=== PATIENT | female | born 1985 | race Caucasian/White ===

== ENCOUNTER 2022-01-25 06:01 | Inpatient (IN) ==
[2022-01-25] MEDS ORDERED: Naloxone 0.4 MG/ML INJ IVP PRN (06:15)
[2022-01-25] MEDS ORDERED: Metoclopramide 10 MG/2 ML VIAL IVP PRN (06:15)
[2022-01-25] MEDS ORDERED: Famotidine 20 MG/2 ML VIAL IVP PRN (06:15)
[2022-01-25] MEDS ORDERED: *HR* Nalbuphine 10 MG/ML AMPUL IV PRN (06:15)
[2022-01-25] MEDS ORDERED: miSOPROStoL 25 MCG TABLET PO PRN (06:15)
[2022-01-25] MEDS ORDERED: EPHEDrine 50 MG/ML VIAL IVP PRN (06:43)
[2022-01-25 06:54] LABS: Basophils % 0.2 %; Eosinophils # 0.1 K/mcL (0.0-0.6); Eosinophils % 1.4 %; Hematocrit 39.7 % (35.3-44.9); Hemoglobin 13.2 g/dL (11.5-15.4); Immature Granulocytes % 0.4 % (0-4); Lymphocytes # 2.6 K/mcL (0.6-4.6); Lymphocytes % 28.6 %; Mean Corpuscular HGB Conc 33.2 g/dL (31.6-35.5); Mean Corpuscular Hemoglobin 31.7 pg (28.0-33.3); Mean Corpuscular Volume 95.2 fL (83.0-100.0); Mean Platelet Volume 11.4 fL (9.4-12.4); Monocytes # 0.9 K/mcL (0.0-1.3); Monocytes % 9.9 %; Neutrophils # 5.5 K/mcL (1.6-8.9); Platelet Count 162 K/mcL (140-400); Red Blood Count 4.17 M/mcL (3.82-4.97); Red Cell Distribution Width 12.1 % (11.5-14.5); Segmented Neutrophils % 59.5 %; White Blood Count 9.2 K/mcL (4.3-11.1)
[2022-01-25 08:28] LABS: Amphetamine Screen,Urine Negative ng/mL (Cutoff=1000); Barbiturate Screen,Urine Negative ng/mL (Cutoff=200); Benzodiazepines Screen,Urine Negative ng/mL (Cutoff=200); Cannabinoid Screen,Urine Positive ng/mL (Cutoff = 50); Cocaine Screen,Urine Negative ng/mL (Cutoff= 300); Opiate Screen,Urine Negative ng/mL (Cutoff=300); Phencyclidine Screen,Urine Negative ng/mL (Cutoff=25)
[2022-01-25] MEDS ORDERED: EPHEDrine sulfate 50 MG/10 ML VIAL IVP PRN (12:30)
[2022-01-25] MEDS: Ringers Solution, Lactated 1,000 ML IVC SCH ×2 (13:10→14:18)
[2022-01-25] MEDS: Epidural Premix (fent/bupiv) 110 ML EP SCH ×2 (14:35→21:37)
[2022-01-25] MEDS ORDERED: Ondansetron 4 MG/2 ML VIAL ONE (14:38)
[2022-01-25] MEDS: Ondansetron 4 MG/2 ML VIAL IVP PRN ×2 (14:44→23:23)
[2022-01-25] MEDS ORDERED: Oxytocin 30 UNIT/503 ML BAG IVC SCH (15:45)
[2022-01-26 06:22] VITALS: O2SAT 99
[2022-01-26] MEDS ORDERED: Oxytocin 30 UNIT/503 ML BAG IVC SCH (07:06)
[2022-01-26] MEDS ORDERED: Lanolin 7 G OINT...G. TP PRN (07:06)
[2022-01-26] MEDS ORDERED: Benzocaine/Menthol 56 GM AEROSOL SPRAY TP PRN (07:06)
[2022-01-26] MEDS ORDERED: Rho Immune Globulin 1,500 UNIT SYRINGE IM PRN (07:06)
[2022-01-26] MEDS ORDERED: Ondansetron ODT 4 MG TAB.RAPDIS SL PRN (07:06)
[2022-01-26] MEDS ORDERED: Measles/Mumps/Rubella Vacc 0.5 ML VIAL SQ PRN (07:06)
[2022-01-26] MEDS ORDERED: Benzocaine/Menthol 56 GM AEROSOL SPRAY TP ONE (07:16)
[2022-01-26] MEDS: Ibuprofen 600 MG TABLET PO SCH ×3 (07:41→21:01)
[2022-01-26] MEDS: Prenatal Vit/FA 1 EACH TABLET PO SCH (08:03)
[2022-01-26] MEDS: Acetaminophen 325 MG TABLET PO SCH ×3 (15:43→21:01)
[2022-01-27] MEDS: Acetaminophen 325 MG TABLET PO SCH ×2 (03:49→10:56)
[2022-01-27] MEDS: Ibuprofen 600 MG TABLET PO SCH ×2 (03:49→10:57)
[2022-01-27 05:27] LABS: Basophils % 0.2 %; Eosinophils # 0.2 K/mcL (0.0-0.6); Eosinophils % 0.9 %; Hematocrit 32.4 % (35.3-44.9); Immature Granulocytes % 0.5 % (0-4); Lymphocytes # 2.8 K/mcL (0.6-4.6); Mean Corpuscular HGB Conc 33.6 g/dL (31.6-35.5); Mean Corpuscular Hemoglobin 31.6 pg (28.0-33.3); Mean Corpuscular Volume 93.9 fL (83.0-100.0); Mean Platelet Volume 11.2 fL (9.4-12.4); Monocytes # 1.4 K/mcL (0.0-1.3); Monocytes % 7.4 %; Neutrophils # 14.1 K/mcL (1.6-8.9); Platelet Count 161 K/mcL (140-400); Red Blood Count 3.45 M/mcL (3.82-4.97); Red Cell Distribution Width 12.2 % (11.5-14.5)
[2022-01-27 05:29] LABS: Hemoglobin 10.9 g/dL (11.5-15.4); White Blood Count 18.5 K/mcL (4.3-11.1)
[2022-01-27 07:06] VITALS: BP 105/63; PULSE 60; TEMP 98
[2022-01-27] MEDS: Prenatal Vit/FA 1 EACH TABLET PO SCH (09:31)
== END 2022-01-27 15:15 | disposition home or self-care (01) | DRG 560 ==
LOC: 1NENULAB 06:01 → 1NENUOBS 01-26 06:51
PROVIDERS: ADMIT Student in an Organized Health Care Education/Training Program; ATTEND Student in an Organized Health Care Education/Training Program